=== PATIENT | male | born 1970 | race Caucasian/White ===

== ENCOUNTER → 2018-10-20 | Outpatient (CLI) | payer MEDICAID | LOC: M OUTALCOH 12:50 | PROVIDERS: ATTEND Psychiatry & Neurology Psychiatry | DX: Z03.89 Encounter for observation for other suspected diseases and conditions ruled out (principal) ==

== ENCOUNTER 2018-11-04 09:00 | Outpatient (RCR) | payer MEDICAID | END 2018-11-10 | LOC: M OUTALCOH 09:00 | PROVIDERS: ATTEND Psychiatry & Neurology Psychiatry | DX: F12.10 Cannabis abuse, uncomplicated (principal); F17.200 Nicotine dependence, unspecified, uncomplicated ==

== ENCOUNTER 2018-12-09 14:00 | Outpatient (RCR) | payer MEDICAID | END 2018-12-11 | LOC: M OUTALCOH 14:00 | PROVIDERS: ATTEND Psychiatry & Neurology Psychiatry | DX: F12.10 Cannabis abuse, uncomplicated (principal); F17.200 Nicotine dependence, unspecified, uncomplicated ==

== ENCOUNTER 2019-01-07 12:00 | Outpatient (RCR) | payer MEDICAID | END 2019-01-10 | LOC: M OUTALCOH 12:00 | PROVIDERS: ATTEND Psychiatry & Neurology Psychiatry | DX: F12.10 Cannabis abuse, uncomplicated (principal); F17.200 Nicotine dependence, unspecified, uncomplicated ==

== ENCOUNTER → 2019-02-10 | Outpatient (RCR) | payer MEDICAID | LOC: M OUTALCOH 01-20 12:49 | PROVIDERS: ATTEND Psychiatry & Neurology Psychiatry | DX: F12.10 Cannabis abuse, uncomplicated (principal); F17.200 Nicotine dependence, unspecified, uncomplicated ==

== ENCOUNTER 2019-02-24 12:59 | Outpatient (RCR) | payer MEDICAID | END 2019-03-13 | LOC: M OUTALCOH 12:59 | PROVIDERS: ATTEND Psychiatry & Neurology Addiction Medicine | DX: F12.10 Cannabis abuse, uncomplicated (principal); F17.200 Nicotine dependence, unspecified, uncomplicated ==

== ENCOUNTER → 2020-11-09 | Outpatient (CLI) | payer OTHER ==
[~2020-11-09] MED LIST: ISOVUE-300 61% 50ML VIAL As Ordered ONE; PROHANCE 279.3MG/ML 5ML VIAL As Ordered ONE
--- NOTE | 2020-11-09 09:12 | REP ---
INDICATION: IMPINGEMENT SYNDROME. COMPARISON: None TECHNIQUE: The procedure was performed by WARD Conrad, under the direct supervision of Dr. Edouard. The benefits and risks of the procedure were explained to the patient, and an informed consent was obtained. Directly prior to the start of the procedure, a formal time-out was completed in the procedure room. The right glenohumeral joint space was localized using fluoroscopic guidance. The skin was prepped and draped in a sterile fashion. Approximately 5 mL of 1% Lidocaine 10 mg/ml was used as a local anesthetic. Using fluoroscopic guidance, a #22 gauge spinal needle was inserted and advanced into the right glenohumeral joint space. Approximately 1 mL of Isovue 300 was injected to verify placement. Twelve mL of a solution containing 20 mL of sterile saline and 0.15 mL of ProHance was injected into the joint space. The needle was removed and the patient was taken to MRI for post procedural imaging. FINDINGS: The patient tolerated the procedure well and there were no immediate complications. IMPRESSION: Fluoroscopically guided right shoulder MRI arthrogram injection. 0.1 minutes of fluoroscopy time was utilized for this procedure. Some fluoroscopic images are performed with last image hold technology. These images require no additional radiation. <Electronically signed by Olivia Aguiar > 11/09/20 09 <Electronically signed by Martinez Edouard > 11/09/20 09
--- NOTE | 2020-11-09 10:02 | REP ---
INDICATION: IMPINGEMENT SYNDROME. COMPARISON: Comparison MR arthrography right shoulder November 03, 2018. TECHNIQUE: The injection procedure is performed and dictated separately. Pre and post intra-articular gadolinium enhanced saline injected imaging is acquired. Imaging planes include axial, oblique coronal, oblique sagittal and ABER projection images. T1 and T2-weighted scans are included with and without fat saturation. FINDINGS: Cortical and medullary bone signal intensity are normal in the visualized scapula, proximal humerus and the visualized portion of the clavicle. The AC joint shows mild superior osteoarthritic hypertrophy. Glenohumeral articulation is normally aligned. The pre-injection imaging shows minimal fluid in the subcoracoid recess. There is a small amount of subacromial subdeltoid bursal fluid. Pre-injection imaging shows some increased signal intensity and slight swelling in the distal supraspinatus tendon consistent with tendinitis tendinosis. The subscapularis tendon is somewhat redundant and shows tendinosis as well. Infraspinatus tendon is unremarkable. The biceps tendon is in the bony bicipital groove and appears intact. Post injection imaging shows good filling and enhancement of the glenohumeral articulation. There is no evidence of loose body. No anterior or posterior labral tear is seen. There is no evidence of superior labral tear on today's study. T1 weighted post injection imaging shows no evidence of complete rotator cuff tear. No articular cartilage defect is seen. ABER images show no evidence of anterior labral tear. IMPRESSION: Supraspinatus and subscapularis tendinosis. No focal cuff tear seen. Minimal AC joint hypertrophy. Subacromial subdeltoid bursal effusion. No labral tear appreciated. <Electronically signed by Martinez Edouard > 11/09/20 [id number]
== END ==
LOC: M RADPRO 07:03
PROVIDERS: ATTEND Physician Assistant
DX: M75.41 Impingement syndrome of right shoulder (principal)
CPT/HCPCS: 23350; 73223; 77002; A9576; Q9967

== ENCOUNTER → 2023-08-21 | Outpatient (CLI) | payer MEDICAID | LOC: M OUTALCOH 07:25 | PROVIDERS: ATTEND Psychiatry & Neurology Psychiatry | DX: F12.10 Cannabis abuse, uncomplicated (principal); F17.200 Nicotine dependence, unspecified, uncomplicated ==

== ENCOUNTER 2023-09-05 16:00 | Outpatient (RCR) | payer MEDICAID | END 2023-09-11 | LOC: M OUTALCOH 16:00 | PROVIDERS: ATTEND Psychiatry & Neurology Psychiatry | DX: F10.10 Alcohol abuse, uncomplicated (principal); F12.10 Cannabis abuse, uncomplicated ==

== ENCOUNTER 2023-10-10 16:00 | Outpatient (RCR) | payer MEDICAID | END 2023-10-12 | LOC: M OUTALCOH 16:00 | PROVIDERS: ATTEND Psychiatry & Neurology Psychiatry | DX: F10.10 Alcohol abuse, uncomplicated (principal); F12.10 Cannabis abuse, uncomplicated ==

== ENCOUNTER 2023-10-11 16:00 | Outpatient (RCR) | payer MEDICAID | END 2023-10-12 | LOC: M OUTALCOH 16:00 | PROVIDERS: ATTEND Psychiatry & Neurology Psychiatry | DX: F10.10 Alcohol abuse, uncomplicated (principal); F12.10 Cannabis abuse, uncomplicated ==

== ENCOUNTER 2023-11-08 14:54 | Outpatient (RCR) | payer MEDICAID | END 2023-11-11 | LOC: M OUTALCOH 14:54 | PROVIDERS: ATTEND Psychiatry & Neurology Psychiatry | DX: F10.10 Alcohol abuse, uncomplicated (principal); F12.10 Cannabis abuse, uncomplicated | CPT/HCPCS: G0397 ×2 ==

== ENCOUNTER 2023-11-22 15:00 | Outpatient (RCR) | payer MEDICAID | END 2023-12-12 | LOC: M OUTALCOH 15:00 | PROVIDERS: ATTEND Psychiatry & Neurology Psychiatry | DX: F10.10 Alcohol abuse, uncomplicated (principal); F12.10 Cannabis abuse, uncomplicated ==

== ENCOUNTER → 2024-06-10 | Outpatient (CLI) | payer OTHER ==
[2024-06-10 10:54] LABS: BASO # 0.1 10^3/uL (0.0-0.2); BASO % 0.6 % (0.0-1.0); EOS # 0.1 10^3/uL (0.0-0.5); EOS % 1.1 % (0.0-3.0); HEMATOCRIT 43.8 % (42.0-52.0); HEMOGLOBIN 14.4 g/dl (13.5-17.5); LYMPH # 2.3 10^3/uL (1.5-5.0); LYMPH % 27.7 % (24.0-44.0); MEAN CORPUSCULAR HEMOGLOBIN 31.8 pg (27.0-33.0); MEAN CORPUSCULAR HGB CONC 32.9 g/dl (32.0-36.5); MEAN CORPUSCULAR VOLUME 96.7 fl (80.0-96.0); MONO # 0.6 10^3/uL (0.0-0.8); MONO % 7.3 % (2.0-8.0); NEUTROPHILS # 5.3 10^3/uL (1.5-8.5); NEUTROPHILS % 63.1 % (36.0-66.0); PLATELET COUNT, AUTOMATED 257 10^3/uL (150-450); RED BLOOD COUNT 4.53 10^6/uL (4.30-6.10); WHITE BLOOD COUNT 8.4 10^3/uL (4.0-10.0)
[2024-06-10 10:57] LABS: ALBUMIN 3.6 G/DL (3.2-5.2); ALKALINE PHOSPHATASE 123 U/L (40-129); ALT/SGPT 17 U/L (7.0-40); AST/SGOT 13 U/L (<34); BILIRUBIN,TOTAL 0.3 MG/DL (0.3-1.2); BLOOD UREA NITROGEN 15 MG/DL (9-23); CARBON DIOXIDE LEVEL 28 MMOL/L (20-31); CHLORIDE LEVEL 107 MMOL/L (98-107); CHOLESTEROL LEVEL 121 MG/DL (<200); CHOLESTEROL RISK RATIO 2.88 (<5); CREATININE FOR GFR 0.98 MG/DL (0.70-1.30); GLOMERULAR FILTRATION RATE > 90.0 (>56); GLUCOSE, FASTING 102 MG/DL (60-100); HDL CHOLESTEROL 41.9 MG/DL (>40); LDL CHOLESTEROL 63.1 MG/DL (<100); NON-HDL-C 79.1 MG/DL; POTASSIUM SERUM 4.1 MMOL/L (3.5-5.1); PSA SCREENING 0.51 NG/ML (< 4.00); SODIUM LEVEL 139 MMOL/L (136-145); TOTAL PROTEIN 6.8 G/DL (5.7-8.2); TRIGLYCERIDES LEVEL 80 MG/DL (<150)
[2024-06-10 10:58] LABS: THYROID STIMULATING HORMONE 0.554 uIU/ML (0.55-4.78)
[2024-06-10 10:59] LABS: FREE T4 1.03 NG/DL (0.89-1.76)
== END ==
LOC: M PLALAB 07:59
PROVIDERS: ATTEND Physician Assistant Medical
DX: Z00.00 Encounter for general adult medical examination without abnormal findings (principal); R03.0 Elevated blood-pressure reading, without diagnosis of hypertension; Z13.220 Encounter for screening for lipoid disorders; Z12.5 Encounter for screening for malignant neoplasm of prostate